=== PATIENT | female | born 1950 | race Caucasian/White ===

== ENCOUNTER 2016-06-17 14:17 | Observation (INO) | payer OTHER ==
--- NOTE | 2016-06-17 15:13 | RAD ---
HISTORY: Altered mental status COMPARISONS: None VIEWS:1: Single frontal portable view of the chest at 2:58 PM FINDINGS: LINES AND TUBES: None. CARDIOMEDIASTINAL SILHOUETTE: The cardiomediastinal silhouette is normal for portable technique. PLEURA: The costophrenic angles are sharp. No pleural abnormalities are noted. LUNG PARENCHYMA: The lungs are clear. ABDOMEN: The upper abdomen is clear. There is no subphrenic gas. BONES AND SOFT TISSUES: The patient is status post anterior cervical fusion IMPRESSION: NO ACTIVE CARDIOPULMONARY DISEASE.
--- NOTE | 2016-06-17 15:20 | RAD ---
HISTORY: Headache, ataxia, word finding difficulty COMPARISONS: None TECHNIQUE: Multiple contiguous axial CT scans were obtained of the head without intravenous contrast. FINDINGS: HEMORRHAGE/INFARCT: There is no hemorrhage or acute infarct. MASSES/SHIFT: There is no mass or shift. EXTRA-AXIAL SPACES: There are no extra-axial fluid collections. SULCI AND VENTRICLES: The sulci and ventricles are normal in size and position for the patient's stated age. CEREBRUM: There are no focal parenchymal abnormalities. BRAINSTEM: There are no focal parenchymal abnormalities. CEREBELLUM: There are no focal parenchymal abnormalities. VESSELS: The vessels are grossly normal. PARANASAL SINUSES: The paranasal sinuses are clear. ORBITS: The orbits are unremarkable. BONES AND SOFT TISSUE: No bone or soft tissue abnormalities are noted. OTHER: None IMPRESSION: NO ACUTE INTRACRANIAL PATHOLOGY.
[2016-06-17] MEDS: NS 0.9% 1000 ML* 1,000 ML IV SCH ×2 (15:25→18:30)
[2016-06-17 15:26] LABS: Hematocrit 35 % (35-47); Hemoglobin 11.7 g/dl (12.0-16.0); Mean Corpuscular HGB Conc 33 g/dl (31-36); Mean Corpuscular Hemoglobin 30 pg (27-31); Mean Corpuscular Volume 90 fL (80-97); Mean Platelet Volume 7 um3 (7.4-10.4); Red Blood Count 3.93 10^6/ul (4.0-5.4); Red Cell Distribution Width 13 % (10.5-15); White Blood Count 6.3 10^3/ul (3.5-10.8)
[2016-06-17 15:41] LABS: ALT 17 U/L (7-52); AST 20 U/L (13-39); Albumin 4.1 g/dL (3.2-5.2); Alkaline Phosphatase 79 U/L (34-104); Anion Gap 8 mmol/L (2-11); BUN/Creatinine Ratio 20.7 (8-20); Blood Urea Nitrogen 24 mg/dL (6-24); C Reactive Protein 11.84 mg/L (< 5.00); CO2 Carbon Dioxide 23 mmol/L (22-32); Calcium 9.7 mg/dL (8.6-10.3); Chloride 106 mmol/L (101-111); Creatine Kinase 102 U/L (10-223); EGFR African American 60.5 (>60); Glucose 92 mg/dL (70-100); Lipase 32 U/L (11.0-82.0); Magnesium 1.9 mg/dL (1.9-2.7); Sodium 137 mmol/L (133-145); Total Protein 8.1 g/dL (6.4-8.9)
[2016-06-17 16:10] LABS: Acetaminophen < 15 mcg/mL; Alcohol < 10 mg/dL (<10)
--- NOTE | 2016-06-17 16:15 | ED ---
cinthia Quintana Timothy, scribed for Arik West MD on 06/17/16 at 1443 . Altered Mental Status - HPI Summary HPI Summary: Elisa Basilio is a 65 yo female presenting to [facility] with "dizziness, like her head is swimming" and confusion, sent by her PCP. PCP is requesting CT brain and lyme disease labs. She states she was at work when she noticed her dizziness , and then became emotional and would be unable to focus and would lose her train of thought. She states she has felt off-balance since 1100 today. She states she has had similar Sx since the end of May that resolved. Her dizziness increases when she sits up or moves her head. She states she has had a mild, intermittent 3/10 ZAIDI since before concern for lyme disease was brought up. She is not in any current pain. She has allergies with runny nose. She denies weakness, numbness, visual changes, ear pain, sore throat, CP, SOB. Her daughter present in room states she has been having some difficulty finding words. Her MHx includes HTN, arthrtic changes, shingles 2013. - History Of Current Complaint Chief Complaint: EDAltMentalStatus Stated Complaint: AMS Time Seen by Provider: 06/17/16 14:34 Hx Obtained From: Patient Onset/Duration: Unknown Timing: Constant Severity Initially: Moderate Severity Currently: Moderate Character: Confusion Aggravating Factor(s): Other - sitting up in bed Alleviating Factor(s): Nothing Associated Signs And Symptoms: Positive: Dizziness - Allergies/Home Medications Allergies/Adverse Reactions: Allergies Allergy/AdvReac Type Severity Reaction Status Date / Time Nitrofurantoin Allergy Rash And Verified 06/17/16 14:54 [From Macrodantin] Itching PMH/Surg Hx/FS Hx/Imm Hx Endocrine/Hematology History: Denies: Hx Diabetes, Hx Thyroid Disease Cardiovascular History: Reports: Hx Hypertension - Controlled Respiratory History: Reports: Hx Seasonal Allergies Denies: Hx Asthma GI History: Denies: Hx Ulcer - Cancer History Hx Chemotherapy: No Hx Radiation Therapy: No - Surgical History Surgery Procedure, Year, and Place: cervical disc replaced. lower back issues. x1. tonsillectomy Infectious Disease History: Reports: Hx Shingles - 2013 Denies: Hx Hepatitis, Hx Human Immunodeficiency Virus (HIV), Traveled Outside the [place] in Last 30 Days - Family History Known Family History: Positive: Cardiac Disease, Hypertension, Diabetes, Other - breast CA - Social History Alcohol Use: Occasionally Hx Substance Use: No Substance Use Type: Reports: None Hx Tobacco Use: No Smoking Status (MU): Never Smoked Tobacco Review of Systems Constitutional: Negative Eyes: Negative Negative: Blurred Vision Positive: Nasal Discharge. Negative: Sore Throat, Ear Ache Cardiovascular: Negative Negative: Chest Pain Respiratory: Negative Negative: Shortness Of Breath Gastrointestinal: Negative Genitourinary: Negative Musculoskeletal: Negative Skin: Negative Neurological: Other - confusion, dizziness, off balance, unable to focus Positive: Headache. Negative: Weakness, Numbness Psychological: Normal All Other Systems Reviewed And Are Negative: Yes Physical Exam Triage Information Reviewed: Yes Vital Signs On Initial Exam: Initial Vitals Temp Pulse Resp BP Pulse Ox 98 F 82 17 133/90 96 06/17/16 14:23 06/17/16 14:23 06/17/16 14:23 06/17/16 14:23 06/17/16 14:23 Vital Signs Reviewed: Yes Appearance: Positive: Well-Appearing, No Pain Distress, Well-Nourished Skin: Positive: Warm, Skin Color Reflects Adequate Perfusion, Dry Head/Face: Positive: Normal Head/Face Inspection Eyes: Positive: EOMI, ABIDA, Other: - bilateral nystagmus ENT: Positive: Normal ENT inspection, Hearing grossly normal. Negative: Muffled /hoarse voice Neck: Positive: Supple, Nontender Respiratory/Lung Sounds: Positive: Clear to Auscultation, Breath Sounds Present Cardiovascular: Positive: RRR Musculoskeletal: Positive: Strength/ROM Intact Neurological: Positive: Sensory/Motor Intact - no focal neurological deficit, Alert, Oriented to Person Place, Time Psychiatric: Positive: Affect/Mood Appropriate Diagnostics - Vital Signs Vital Signs Temp Pulse Resp BP Pulse Ox 06/17/16 14:23 98 F 82 17 133/90 96 - Laboratory Lab Results: Lab Results 06/17/16 06/17/16 06/17/16 Range/Units 15:22 15:22 15:22 WBC 6.3 (3.5-10.8) 10^3/ul RBC 3.93 L (4.0-5.4) 10^6/ul Hgb 11.7 L (12.0-16.0) g/dl Hct 35 (35-47) % MCV 90 (80-97) fL MCH 30 (27-31) pg MCHC 33 (31-36) g/dl RDW 13 (10.5-15) % Plt Count 261 (150-450) 10^3/ul MPV 7 L (7.4-10.4) um3 Neut % (Auto) 53.6 (38-83) % Lymph % (Auto) 36.7 (25-47) % Upton % (Auto) 8.2 (1-9) % Eos % (Auto) 0.9 (0-6) % Baso % (Auto) 0.6 (0-2) % Absolute Neuts (auto) 3.4 (1.5-7.7) 10^3/ul Absolute Lymphs (auto) 2.3 (1.0-4.8) 10^3/ul Absolute Monos (auto) 0.5 (0-0.8) 10^3/ul Absolute Eos (auto) 0.1 (0-0.6) 10^3/ul Absolute Basos (auto) 0 (0-0.2) 10^3/ul Absolute Nucleated RBC 0 10^3/ul Nucleated RBC % 0 INR (Anticoag Therapy) 0.97 (0.89-1.11) APTT 29.8 (26.0-36.3) seconds Sodium 137 (133-145) mmol/L Potassium 4.0 (3.5-5.0) mmol/L Chloride 106 (101-111) mmol/L Carbon Dioxide 23 (22-32) mmol/L Anion Gap 8 (2-11) mmol/L BUN 24 (6-24) mg/dL Creatinine 1.16 H (0.51-0.95) mg/dL Est GFR ( Amer) 60.5 (>60) Est GFR (Non-Af Amer) 47.0 (>60) BUN/Creatinine Ratio 20.7 H (8-20) Glucose 92 (70-100) mg/dL Lactic Acid (0.5-2.0) mmol/L Calcium 9.7 (8.6-10.3) mg/dL Magnesium 1.9 (1.9-2.7) mg/dL Total Bilirubin 0.30 (0.2-1.0) mg/dL AST 20 (13-39) U/L ALT 17 (7-52) U/L Alkaline Phosphatase 79 (34-104) U/L Ammonia (16-53) mol/L Total Creatine Kinase 102 (10-223) U/L CK-MB (CK-2) 1.5 (0.6-6.3) ng/mL Troponin I 0.00 (<0.04) ng/mL C-Reactive Protein 11.84 H (< 5.00) mg/L Total Protein 8.1 (6.4-8.9) g/dL Albumin 4.1 (3.2-5.2) g/dL Globulin 4.0 (2-4) g/dL Albumin/Globulin Ratio 1.0 (1-3) Lipase 32 (11.0-82.0) U/L TSH Pending Acetaminophen < 15 mcg/mL Serum Alcohol < 10 (<10) mg/dL 06/17/16 06/17/16 Range/Units 15:22 15:22 WBC (3.5-10.8) 10^3/ul RBC (4.0-5.4) 10^6/ul Hgb (12.0-16.0) g/dl Hct (35-47) % MCV (80-97) fL MCH (27-31) pg MCHC (31-36) g/dl RDW (10.5-15) % Plt Count (150-450) 10^3/ul MPV (7.4-10.4) um3 Neut % (Auto) (38-83) % Lymph % (Auto) (25-47) % Upton % (Auto) (1-9) % Eos % (Auto) (0-6) % Baso % (Auto) (0-2) % Absolute Neuts (auto) (1.5-7.7) 10^3/ul Absolute Lymphs (auto) (1.0-4.8) 10^3/ul Absolute Monos (auto) (0-0.8) 10^3/ul Absolute Eos (auto) (0-0.6) 10^3/ul Absolute Basos (auto) (0-0.2) 10^3/ul Absolute Nucleated RBC 10^3/ul Nucleated RBC % INR (Anticoag Therapy) (0.89-1.11) APTT (26.0-36.3) seconds Sodium (133-145) mmol/L Potassium (3.5-5.0) mmol/L Chloride (101-111) mmol/L Carbon Dioxide (22-32) mmol/L Anion Gap (2-11) mmol/L BUN (6-24) mg/dL Creatinine (0.51-0.95) mg/dL Est GFR ( Amer) (>60) Est GFR (Non-Af Amer) (>60) BUN/Creatinine Ratio (8-20) Glucose (70-100) mg/dL Lactic Acid 0.8 (0.5-2.0) mmol/L Calcium (8.6-10.3) mg/dL Magnesium (1.9-2.7) mg/dL Total Bilirubin (0.2-1.0) mg/dL AST (13-39) U/L ALT (7-52) U/L Alkaline Phosphatase (34-104) U/L Ammonia 33 (16-53) mol/L Total Creatine Kinase (10-223) U/L CK-MB (CK-2) (0.6-6.3) ng/mL Troponin I (<0.04) ng/mL C-Reactive Protein (< 5.00) mg/L Total Protein (6.4-8.9) g/dL Albumin (3.2-5.2) g/dL Globulin (2-4) g/dL Albumin/Globulin Ratio (1-3) Lipase (11.0-82.0) U/L TSH Acetaminophen mcg/mL Serum Alcohol (<10) mg/dL Result Diagrams: 06/17/16 15:22 06/17/16 15:22 Lab Statement: Any lab studies that have been ordered have been reviewed, and results considered in the medical decision making process. - Radiology CXR Xray Interpretation: No Acute Changes - IMPRESSION: NO ACTIVE CARDIOPULMONARY DISEASE. Radiology Interpretation Completed By: Radiologist - CT Brain CT Interpretation: No Acute Changes - IMPRESSION: NO ACUTE INTRACRANIAL PATHOLOGY. CT Interpretation Completed By: Radiologist - EKG 1440 Cardiac Rate: NL - [address] Segment: Normal Ectopy: None EKG Interpretation: NSR @ 76 BPM, normal ST, no ectopy National Institutes Of Health - NIH Scale Level of Consciousness: Alert/Keenly Responsive Ask Patient the Month and His/Her Age: Both Correct Ask Pt to Open/Close Eyes and Consulting Engineer/Release Non-Paretic Hand: Both Correctly Best Gaze (Only Horizontal Eye Movement): Normal Visual Field Testing: No Visual Loss Facial Paresis-Pt to Smile & Close Eyes or Grimace Symmetry: Normal/Symmetrical Motor Function - Right Arm: No Drift-Holds 10 Seconds Motor Function - Left Arm: No Drift-Holds 10 Seconds Motor Function - Right Leg: No Drift-Holds 10 Seconds Motor Function - Left Leg: No Drift-Holds 10 Seconds Limb Ataxia-Must be out of Proportion to Weakness Present: Absent Sensory (Use Pinprick to Test Arms/Legs/Trunk/Face): Normal Best Language (Describe Picture, Name Items): No Aphasia Dysarthria (Read Several Words): Normal Extinction and Inattention: No Abnormality Total Score: 0 Re-Evaluation - Re-Evaluation First Eval Re-Evaluation Time: 15:44 Change: Unchanged Comment: Discussed lab and imaging results with Pt and family. She is agreeable to be admitted. Altered Mental Statu Course/Dx - Course Course Of Treatment: NO CRITICAL CARE TIME Assessment/Plan: Elisa Hough is a 65 yo female presenting to [facility] with confusion and dizziness, sent by her PCP. Her medication list has been reviewed this visit. In the ED she received IV fluids. Her CXR suggests no active cardiopulmonary disease. Her Brain CT suggests no acute intracranial pathology. After clinical examination and review of her labs and imaging studies, as well as discussion with Leonid Mariscal NP and Dr. Rausch, she will be admitted to [facility] for further observation and evaluation. - Diagnoses Discharge Diagnoses: TIA (transient ischemic attack) - Provider Notifications Discussed Care Of Patient With: 1535 - Leonid Mariscal (HOSPITAL INSURANCE CLERK, hospitalist) - discussed Pt condition. 1601 - Dr. Rausch (hospitalist) - discussed Pt condition , accepts Pt for admission to [facility]. Instructed by Provider To: Admit As Inpatient Discharge - Discharge Plan Condition: Stable Disposition: ADMITTED TO [facility] Discharge Disposition Comment: evaluation and treatment Referrals: Kellie Crump MD [Primary Care Provider] - The documentation as recorded by the cinthia valdez Timothy accurately reflects the service I personally performed and the decisions made by me, Arik West MD.
[2016-06-17] MEDS ORDERED: Acetaminophen TAB* 325 MG PO PRN (17:42)
[2016-06-17] MEDS ORDERED: Temazepam CAP* 15 MG PO PRN (17:42)
[2016-06-17] MEDS ORDERED: NS 0.9% 1000 ML* 1,000 ML IV SCH (17:45)
[2016-06-17] MEDS ORDERED: Venlafaxine EXT RELEASE CAP* 75 MG PO SCH (18:00)
[2016-06-17 18:16] LABS: Urine Bacteria Absent (Absent); Urine Bilirubin Negative (Negative); Urine Glucose Negative (Negative); Urine Nitrite Negative (Negative)
[2016-06-17] MEDS: Cholecalciferol TAB* 1000 UNITS PO SCH (18:25)
[2016-06-17] MEDS: Aspirin Low Dose CHEW TAB* 81 MG PO SCH (18:25)
[2016-06-17] MEDS: Cyanocobalamin TAB* 500 MCG PO SCH (18:25)
[2016-06-17 18:47] LABS: Erythrocyte Sed Rate 87 mm/Hr (0-30)
--- NOTE | 2016-06-17 19:33 | HP ---
HISTORY AND PHYSICAL: DATE OF ADMISSION: 06/17/16 PRIMARY CARE PROVIDER: Dr. Kellie Crump. CHIEF COMPLAINT: Transient problems with speech, unsteady gait. HISTORY OF PRESENT ILLNESS: Elisa Hough is a 65-year-old female, who has had problems with myalgias and ESR level of 104 documented on 06/08/16 as well as rash noted on the right elbow. She was diagnosed with most likely Lyme by her primary care provider and was prescribed doxycycline 8 days ago. The patient stated that her problems overall occurred approximately 2 weeks ago. She started having problems with upper respiratory infection with congestion and sore throat. She noted ulcer on her tongue and she went to [facility] for evaluation. She was noted with most likely viral ulceration due to herpangina. She did rather well, although she continued to have myalgias and upper respiratory infection symptoms and had 2 episodes of near syncope. Both of these episodes occurred when was suddenly getting up from a sitting position to standing. One of those episodes, she described, she got up to open the door for her dog that was outside to let the dog in and all of a sudden, she felt dizzy and flushed. That resolved after she sat down. It happened twice. She went to see her primary care provider with the above-mentioned complaints. Her primary care provider discovered a circular rash-like lesion on her right elbow. The patient Western blot tested for Lyme, was positive for 1 band out of 5. It was noted that this is not a confirmation of Lyme disease at this point, but it is possible that the patient still had early Lyme and was recommended for the Lyme test to be repeated at a later time. Nevertheless, the patient was treated with doxycycline and she had been doing well. Her upper respiratory infection symptoms and myalgias basically resolved. She continued to take doxycycline without any gastrointestinal issues due to that. 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 She also felt like her head was "floating in water." She also noted that she had problems with difficulty word finding. Her speech was clear and she had no focal weakness that she noted. It lasted approximately an hour and resolved when she was in the emergency department. Here, she is at this point at her baseline, although when I stood her up she had very unsteady gait. She is going to be placed on overnight observation with a diagnosis of possibility of TIA versus labyrinthitis. PAST MEDICAL HISTORY: 1. Newly diagnosed vitamin D and vitamin B12 deficiency. 2. Hypercholesterolemia. 3. Depression. 4. Hypertension. 5. Arthritis of knee. 6. Degenerative disk disease. 7. An episode of dizziness in 2003. 8. An episode of chest pain in 2006 with negative cardiac workup and false positive stress test. 9. History of herpes zoster in 2014. The patient has intermittent postherpetic neuralgia in right T10 dermatome. 10. History of , 1983. 11. Appendectomy in the 1949s. 12. History of tonsillectomy and adenoidectomy. MEDICATIONS: Include: 1. Cetirizine 10 mg daily. 2. Clobetasol 0.05% topical b.i.d. 3. Vitamin B12 2000 mcg daily. 4. Daypro 600 mg 1 tablet daily for knee pain. 5. Doxycycline 100 mg b.i.d., total of 21 days, started on 06/08/16. 6. Effexor ER 150 mg in the morning and 75 mg in the afternoon. 7. Vitamin D3 5000 units daily. 8. Yuvafem 10 mcg vaginal tablets, insert vaginally for 14 days at bedtime. The patient started this treatment on 06/08/16. ALLERGIES: Include MACRODANTIN. SOCIAL HISTORY: The patient denies any tobacco or drug use. She drinks alcohol rarely. 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 She is recently and her surrogate would be her daughter, Sasha Hinton. REVIEW OF SYSTEMS: Please see history of present illness. In addition to the above mentioned, the patient also stated that she had problems in the past with intermittent epigastric pain that since then resolved. She also has a history of intermittent bloating, but has improved in the past several days. All the remaining 14 systems were reviewed and were negative. PHYSICAL EXAMINATION GENERAL: The patient is a very pleasant 65-year-old female who is in no acute distress. Alert, awake, and oriented x3. VITAL SIGNS: Blood pressure 133/90, heart rate of 82 and regular, respiratory rate 17, oxygen saturation 96% on room air, temperature 98.0. HEENT: Head: Atraumatic, normocephalic. Eyes: Pupils equal, round, reactive to light and accommodation. Oropharynx clear. Mucosa moist. NECK: Supple. No JVD, no bruit bilaterally. RESPIRATORY: Clear to auscultation bilaterally. CARDIOVASCULAR: Regular rate and rhythm. No murmur. ABDOMEN: Soft, nontender. Bowel sounds present in all 4 quadrants. EXTREMITIES: There is no edema. Pulses are +2 bilaterally. No clubbing or cyanosis. NEUROLOGIC: The patient was noted to have nystagmus on the left lateral gaze. The patient also has a very unsteady gait and is unable to ambulate without assistance. Her [id number]-onve is non-dysmetric bilaterally. She has no pronator drift. Her motor strength is 5/5 bilaterally. Her [id number] is non -dysmetric bilaterally. Babinski sign negative bilaterally. Her cranial nerves II through XII grossly intact apart from the noted nystagmus. Please also note that in addition on the day of admission on evaluation of bilateral tympanic membranes, there was no evidence of injection, although there appeared to be clear fluid in the left inner ear. PSYCHIATRIC: Oriented x3. Very pleasant, cooperative with evaluation with no evidence of anxiety or depression. DIAGNOSTIC STUDIES/LAB DATA: Shows sodium of 137, potassium 4.0, chloride 106 , carbon dioxide 23, BUN 24, creatinine 1.16. Liver function tests unremarkable. C- reactive protein of 11.8. TSH was 3.2. White blood cell count of 6.3, hemoglobin of 11.7, hematocrit of 35, platelets of 261. Brain CT, impression: "No acute intracranial pathology." Portable chest x-ray, impression: "No active cardiopulmonary disease." EKG showed normal sinus rhythm, rate of 76 beats per minute with normal axis and no ST changes. Please note that from review of the patient's medical records, the patient had a creatinine obtained on 06/05/16 and it was 1.11. Her BUN at that point was 23. Her white blood cell count was 6.2, hemoglobin of 12.6. Her liver function tests were unremarkable on that day. Her ESR was 104. The patient's vitamin D total level was 20.5 which was low. The patient's ESR as mentioned above was 104. The patient's Lyme disease serology showed only one band of IgM and noted that significant serologic response to Borrelia burgdorferi infection is not detected , but cannot rule out early infection. Vitamin B12 was noted to be 189. ASSESSMENT AND PLAN: A 65-year-old female with recently diagnosed possible Lyme. Please also note that on evaluation of the patient's skin, the patient's rash on the right elbow resolved. I will continue her doxycycline for the time being, although her Lyme serology was not conclusive of Lyme. She could have had an acute infection and a repeat serology is recommended . In regards to her symptoms of problems word finding, somewhat dizziness and blurry vision and now continuation of ataxia and nystagmus on left lateral gaze. At this point, the differential includes demyelinating disease versus labyrinthitis versus transient ischemic attack. I discussed the case with Dr. Moore. We will place the patient on telemetry monitored bed and will obtain MRI with and without contrast. We will continue neuro checks every 2 hours and provide with the patient with aspirin on a daily basis. In regards to the patient's history of vitamin B12 and vitamin D deficiency, we will continue the patient's replacement. For DVT prophylaxis, the patient is going to be placed on heparin subcutaneous. The patient's code status is full. TIME SPENT: Approximately 75 minutes was spent on admission of this patient, more than half that time was spent [id number] with the patient in reviewing the patient's recent medical history and history and physical taking. CC: Dr. Kellie Crump; Dr. Moore* [id number]/[facility] #: [id number] [facility]AN HOSPITALLaureano
[2016-06-17] MEDS ORDERED: Gadoteridol* (CONTRAST) 279.3 MG/ML 10 ML IV ONE (20:46)
--- NOTE | 2016-06-17 21:29 | RAD ---
Indication: Dizziness and off balance. Recent diagnosis of Lyme disease. Assess for ischemia and demyelinating disease. Comparison: June 17, 2016 CT Technique: C-sama 1.5 Brittni [id number] with GEM suite. MRI brain without and with contrast. 20 mL ProHance administered IV. Report: Diffusion series is negative for acute or subacute ischemia. Small focus of signal loss at the medial para midline RIGHT frontal lobe at level of the centrum semiovale bowel without corresponding morphologic lesion likely represents sequela of a previous intra-axial hemorrhage most likely related to a cavernous angioma. Unremarkable cerebral sulci, ventricles, and basal cisterns. Symmetric mild increased T2 signal at the bilateral basal ganglia specifically the globus pallidus without associated enhancement or mass effect. Associated minimal calcification at the LEFT basal ganglia on CT. No additional lesions evident at the cerebrum or posterior fossa. No intra or extra-axial fluid collections. Unremarkable orbital contents. No abnormal foci of enhancement evident. Preserved major intracranial flow-voids. No suspicious lesion of the calvarium or skull base. Grossly clear paranasal sinuses and mastoid air spaces. IMPRESSION: 1. Negative for acute or subacute ischemia or evidence for demyelinating disease. 2. Stigmata of punctate hemosiderin deposition at the RIGHT frontal lobe most likely related to a tiny cavernous angioma. 3. Noted mild bilateral symmetric T2 hyperintense without enhancement or mass effect at the basal ganglia specifically involving the globus pallidus while nonspecific may reflect previous toxin exposure such as carbon monoxide or potentially a neurodegenerative or metabolic disease.
[2016-06-17] MEDS: Clobetasol 0.05% OINT* 30 GM TUBE TOPICAL SCH (21:50)
[2016-06-17] MEDS: DOXYcycline CAP(*) 100 MG PO SCH (21:50)
[2016-06-17] MEDS: Heparin VIAL(*) 5000 UNITS/ML VIAL (FIVE THOUSAND) SUBCUT SCH (21:54)
[2016-06-17] MEDS ORDERED: methylPREDNISolone 125 MG* 2 ML VIAL IV ONE (22:30)
--- NOTE | 2016-06-17 23:32 | CONS ---
CONSULTATION REPORT: DATE OF CONSULT: 06/17/2016. PATIENT OF: Dr. Rausch. HISTORY: This is a 65-year-old right-handed woman I am asked to evaluate for a variety of symptoms including unsteady gait. She has in the past 2 weeks of variety of symptoms. She had a rash, which was not a bull's-eye rash on the right elbow. She has had some joint swelling and pain in joints of her hands. She has had myalgias and she has had an elevated sed rate of 104 on the . She also had some throat and URI with some congestion and ulcer on her tongue and was thought to have herpangina. She also had 2 episodes of near syncope while she was standing and she got lightheaded and flushed. She has had no clear balance problems up until recently. She did have some slight blurring of vision. She has had mild left frontotemporal headache for the past week or two. She had worse symptoms and slightly different symptoms today. She has noted throughout the day that her head has been "floating in water" and she has had difficulty describing and it is not true vertigo. She has also had some difficulty with word finding, but this was mild but noticeable both to her and her daughter. She also had an episode of global blurriness of vision. There has been no focal weakness or numbness, but she has also had throughout the day difficulty with balance and unsteadiness of gait. She has had past history of an episode of dizziness in 2003. She has had no other similar symptoms in the past. She has had mild vitamin B12 deficiency of 184 diagnosed recently as well as vitamin D deficiency. PAST MEDICAL HISTORY: She has hypertension, knee arthritis, degenerative disk disease, depression and hypercholesterolemia. She has had chest pain in 2006 with negative cardiac workup. She had a history herpes zoster in 2014. PAST SURGICAL HISTORY: She has had an appendectomy in the distant past as well as a history of , tonsillectomy, adenoidectomy. MEDICATIONS: Include: 1. Cetirizine 10 mg daily. 2. Clobetasol 0.05 topically b.i.d. 3. Vitamin B12 2000 mcg daily. 4. Daypro 600 mg daily for knee pain. 5. Doxycycline 100 mg b.i.d. for 21 days started on June 08. She had one IgM band on her Western Blot. 6. She had Effexor 150 in the morning and 75 in the evening. 7. Vitamin D 5000 units daily. ALLERGIES: She is allergic to MACRODANTIN. SOCIAL HISTORY: She does not smoke or drink or use drugs. 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 REVIEW OF SYSTEMS: Negative in all 14 spheres other than the HPI. PHYSICAL EXAM: She has had no recent fever. Temperature 98, pulse 86, respirations 16, blood pressure 131/76. She is alert and oriented with normal speech and comprehension. Naming was intact. The speech sounded fluent. Cranial nerves II through XII were intact. There was no nystagmus. Discs were sharp. Motor exam revealed normal tone, strength, [id number]-[id number] and fine motor skills. Negative pronator drift. She had an unsteady gait although it was not wide based. Reflexes were 2+ with present ankle jerks and downgoing toes. Neck was supple. Chest was clear. Cardiovascular: Regular rate and rhythm. Abdomen : Soft. Positive bowel sounds. She was mildly tender over her left temporal artery, but not her right. DIAGNOSTIC STUDIES/LAB DATA: Her MRI scan has not been read, but is done with and without contrast. I did not see any major abnormalities. Her white count was 6.3, hematocrit 35, platelets 263. Sed rate was 87 today. Normal INR and PTT. She had a normal CMP other than the creatinine of 1.16. C-reactive protein was 11.8. Normal CPK, ammonia. Normal thyroid. Her UA was positive for 1+ leuk esterase with present hyaline cast. Negative toxicology. CECI rheumatoid factor pending. IMPRESSION: I am concerned that Elisa has possible diffuse inflammatory disease. She has had some joint pain and she has a swollen middle knuckle and she has had some swollen joints in her hands. This has been in the past but perhaps more in the past couple of weeks time. Her rash has faded now but she had a rash and an ulcer. She has some hyaline cast. She has some temporal tenderness and she has diffuse neurological symptoms that do not sound likely can be defined by any one spot such and this is not the story of a stroke but this could be multifocal disease on an autoimmune basis. Her temporal artery is mildly tender and it is possible this represents some form of temporal arteritis, although I think her symptoms do not definitive enough to. Should this is the case, for tonight I am going to treat her with 100 mg of IV Solu- Medrol and have Rheumatology take a look at her in the morning. I discussed with her we may do further tests such as depending on what her autoimmune panel comes back as such as imaging of blood vessels of her head and neck, possibly doing a spinal tap, looking for inflammatory process and possibly a temporal artery bypass. Her serology was not convincing for Lyme disease but that is still a possibility, it would be odd for her to have [employer]TI[employer] Lyme. Her Lyme titers if they were significant would suggest an emerging Lyme disease within the past couple weeks' time would be typically too soon for her neurological symptoms be secondary to Lyme disease. I was speaking to the hospitalist flight operations manager to put this in motion. Thank you for sharing her case. CC: Dr. Crump* [id number]/CPS #: [id number] MTDD
[2016-06-18] MEDS: Heparin VIAL(*) 5000 UNITS/ML VIAL (FIVE THOUSAND) SUBCUT SCH (06:12)
[2016-06-18] MEDS: Cholecalciferol TAB* 1000 UNITS PO SCH (09:13)
[2016-06-18] MEDS: Venlafaxine EXT RELEASE CAP* 75 MG PO SCH (09:14)
[2016-06-18] MEDS: Cyanocobalamin TAB* 500 MCG PO SCH (09:15)
[2016-06-18] MEDS: Aspirin Low Dose CHEW TAB* 81 MG PO SCH (09:15)
[2016-06-18] MEDS: Clobetasol 0.05% OINT* 30 GM TUBE TOPICAL SCH ×2 (09:16→20:28)
[2016-06-18] MEDS: DOXYcycline CAP(*) 100 MG PO SCH ×2 (09:16→20:24)
--- NOTE | 2016-06-18 11:53 | RAD ---
HISTORY: Rule out vasculitis COMPARISONS: None TECHNIQUE: 3-D axial [id number] MR angiography was performed of the head to include the [place]. Multiple 3-D maximum intensity projection reconstructions are also submitted for review. FINDINGS: The study is limited by patient motion artifact. RIGHT VERTEBRAL ARTERY: The distal right vertebral artery is unremarkable, without stenosis. LEFT VERTEBRAL ARTERY: The distal left vertebral artery is unremarkable, without stenosis. DOMINANCE: The vertebral arteries are codominant. DISTAL RIGHT CERVICAL INTERNAL CAROTID ARTERY: The distal right cervical internal carotid artery is unremarkable. DISTAL LEFT CERVICAL INTERNAL CAROTID ARTERY: The distal left cervical internal carotid artery is unremarkable. INTRACRANIAL CIRCULATION: There is no aneurysm, vascular malformation, occlusion, or stenosis of the visualized intracranial circulation. The anterior communicating artery complex is clear. There is a origin of the left posterior cerebral artery. OTHER FINDINGS: None IMPRESSION: NO ANEURYSM, VASCULAR MALFORMATION, OCCLUSION, OR STENOSIS OF THE VISUALIZED INTRACRANIAL CIRCULATION.
--- NOTE | 2016-06-18 11:56 | RAD ---
HISTORY: Rule out vasculitis COMPARISONS: None TECHNIQUE: The following sequences were obtained of the neck after localizing images: Stacked axial 2-D [id number] MR angiography of the neck; 3-D axial [id number] MR angiography of the carotid bifurcations. Multiple 3-D maximum intensity projection reconstructions are submitted for review. FINDINGS: AORTA: The aortic arch is not well visualized secondary to technique and motion artifact. There is no obvious ostial or proximal stenosis of the cephalic great vessels. 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 There is in plane flow saturation artifact of the horizontal portion of the right vertebral artery. LEFT VERTEBRAL ARTERY: The left vertebral artery is patent, without stenosis. There is in plane flow saturation artifact of the horizontal portion of the left vertebral artery. DOMINANCE: The vertebral arteries are codominant. RIGHT COMMON CAROTID ARTERY: The right common carotid artery is patent. RIGHT INTERNAL CAROTID ARTERY: There is no right internal carotid artery stenosis by NASCET criteria. LEFT COMMON CAROTID ARTERY: The left common carotid artery is patent. LEFT INTERNAL CAROTID ARTERY: There is no left internal carotid artery stenosis by NASCET criteria. ADDITIONAL FINDINGS: The visualized intracranial circulation is unremarkable. IMPRESSION: NO INTERNAL CAROTID ARTERY BY NASCET CRITERIA CPT II Codes: 3100F
[2016-06-18] MEDS ORDERED: Bupivacaine 0.5% W/EPI SDV* 30 ML VIAL ONE (14:38)
[2016-06-18] MEDS ORDERED: Lidocaine 1% INJ* 10 MG/ML 30 ML SDV ONE (14:38)
[2016-06-18] MEDS ORDERED: Ibuprofen TAB* 800 MG PO PRN (16:27)
[2016-06-18] MEDS: predniSONE TAB* 20 MG PO SCH (16:34)
--- NOTE | 2016-06-18 17:04 | PN ---
Subjective Date of Service: 06/18/16 Interval History: pt received solu Medrol last night and her gait improved greatly. She is able to ambulate independently. Feels that sometimes she still has problems with finding words, when she is tired. Objective Active Medications: Acetaminophen (Tylenol Tab*) 650 mg PO Q4H PRN PRN Reason: FEVER/PAIN Last Admin: 06/18/16 12:24 Dose: 650 mg Aspirin (Aspirin Low Dose Tab*) 81 mg PO DAILY [facility] Last Admin: 06/18/16 09:15 Dose: 81 mg Cholecalciferol (Vitamin D Tab*) 4,000 units PO DAILY [facility] Last Admin: 06/18/16 09:13 Dose: 4,000 units Clobetasol Propionate (Clobetasol 0.05% Oint*) 1 applic TOPICAL BID [facility] Last Admin: 06/18/16 09:16 Dose: 1 applic Cyanocobalamin (Vitamin B12 Tab*) 1,000 mcg PO DAILY [facility] Last Admin: 06/18/16 09:15 Dose: 1,000 mcg Doxycycline Hyclate (Vibramycin Cap(*)) 100 mg PO BID [facility] Last Admin: 06/18/16 09:16 Dose: 100 mg Ibuprofen (Motrin Tab*) 800 mg PO Q8H PRN PRN Reason: PAIN Last Admin: 06/18/16 16:35 Dose: 800 mg Prednisone (Deltasone Tab*) 60 mg PO DAILY [facility] Last Admin: 06/18/16 16:34 Dose: 60 mg Temazepam (Restoril Cap*) 15 mg PO BEDTIME PRN PRN Reason: INSOMNIA Venlafaxine HCl (Effexor Xr Cap*) 225 mg PO QAM [facility] Last Admin: 06/18/16 09:14 Dose: 225 mg Vital Signs 06/17/16 06/17/16 06/17/16 17:13 17:14 17:56 Temperature 97.9 F 97.9 F Pulse Rate 87 87 Respiratory 18 18 17 Rate Blood Pressure 144/85 144/85 (mmHg) O2 Sat by Pulse 100 100 Oximetry 06/17/16 06/17/16 06/18/16 19:51 20:00 00:22 Temperature 98.0 F 98.3 F Pulse Rate 86 73 Respiratory 16 16 20 Rate Blood Pressure 131/76 120/63 (mmHg) O2 Sat by Pulse 98 96 Oximetry 06/18/16 06/18/16 06/18/16 04:25 07:18 11:59 Temperature 98.3 F 97.7 F 98.2 F Pulse Rate 78 80 80 Respiratory 20 18 17 Rate Blood Pressure 119/83 130/72 116/86 (mmHg) O2 Sat by Pulse 95 97 96 Oximetry Oxygen Devices in Use Now: None Appearance: 65 yo F in nAD, aAOx3 Eyes: No Scleral Icterus, PERRLA Ears/Nose/Mouth/Throat: NL Teeth, Lips, Gums, Mucous Membranes Moist Neck: NL Appearance and Movements; NL JVP, Trachea Midline Respiratory: Symmetrical Chest Expansion and Respiratory Effort, Clear to Auscultation Cardiovascular: NL Sounds; No Murmurs; No JVD, RRR Abdominal: NL Sounds; No Tenderness; No Distention, No Hepatosplenomegaly Lymphatic: No Cervical Adenopathy Extremities: No Clubbing, Cyanosis, - - R 1 st , 2 nd MTP joint edema Skin: No Rash or Ulcers, No Nodules or Sclerosis Neurological: Alert and Oriented x 3, - - mild nystagmus on left laterl gaze.mildly unsteady gait- balt to mamta indepedently, speech clear, motor 5/5 b/ l , finger to nose intact. Result Diagrams: 06/17/16 15:22 06/17/16 15:22 Additional Lab and Data: Lab Results 06/17/16 06/17/16 06/17/16 Range/Units 15:22 15:22 15:22 WBC 6.3 (3.5-10.8) 10^3/ul RBC 3.93 L (4.0-5.4) 10^6/ul Hgb 11.7 L (12.0-16.0) g/dl Hct 35 (35-47) % MCV 90 (80-97) fL MCH 30 (27-31) pg MCHC 33 (31-36) g/dl RDW 13 (10.5-15) % Plt Count 261 (150-450) 10^3/ul MPV 7 L (7.4-10.4) um3 Neut % (Auto) 53.6 (38-83) % Lymph % (Auto) 36.7 (25-47) % [place] % (Auto) 8.2 (1-9) % Eos % (Auto) 0.9 (0-6) % Baso % (Auto) 0.6 (0-2) % Absolute Neuts (auto) 3.4 (1.5-7.7) 10^3/ul Absolute Lymphs (auto) 2.3 (1.0-4.8) 10^3/ul Absolute Monos (auto) 0.5 (0-0.8) 10^3/ul Absolute Eos (auto) 0.1 (0-0.6) 10^3/ul Absolute Basos (auto) 0 (0-0.2) 10^3/ul Absolute Nucleated RBC 0 10^3/ul Nucleated RBC % 0 INR (Anticoag Therapy) 0.97 (0.89-1.11) APTT 29.8 (26.0-36.3) seconds Sodium 137 (133-145) mmol/L Potassium 4.0 (3.5-5.0) mmol/L Chloride 106 (101-111) mmol/L Carbon Dioxide 23 (22-32) mmol/L Anion Gap 8 (2-11) mmol/L BUN 24 (6-24) mg/dL Creatinine 1.16 H (0.51-0.95) mg/dL Est GFR ( Amer) 60.5 (>60) Est GFR (Non-Af Amer) 47.0 (>60) BUN/Creatinine Ratio 20.7 H (8-20) Glucose 92 (70-100) mg/dL Lactic Acid (0.5-2.0) mmol/L Calcium 9.7 (8.6-10.3) mg/dL Magnesium 1.9 (1.9-2.7) mg/dL Total Bilirubin 0.30 (0.2-1.0) mg/dL AST 20 (13-39) U/L ALT 17 (7-52) U/L Alkaline Phosphatase 79 (34-104) U/L Ammonia (16-53) mol/L Total Creatine Kinase 102 (10-223) U/L CK-MB (CK-2) 1.5 (0.6-6.3) ng/mL Troponin I 0.00 (<0.04) ng/mL C-Reactive Protein 11.84 H (< 5.00) mg/L Total Protein 8.1 (6.4-8.9) g/dL Albumin 4.1 (3.2-5.2) g/dL Globulin 4.0 (2-4) g/dL Albumin/Globulin Ratio 1.0 (1-3) Lipase 32 (11.0-82.0) U/L TSH Pending Acetaminophen < 15 mcg/mL Serum Alcohol < 10 (<10) mg/dL 06/17/16 06/17/16 Range/Units 15:22 15:22 WBC (3.5-10.8) 10^3/ul RBC (4.0-5.4) 10^6/ul Hgb (12.0-16.0) g/dl Hct (35-47) % MCV (80-97) fL MCH (27-31) pg MCHC (31-36) g/dl RDW (10.5-15) % Plt Count (150-450) 10^3/ul MPV (7.4-10.4) um3 Neut % (Auto) (38-83) % Lymph % (Auto) (25-47) % [place] % (Auto) (1-9) % Eos % (Auto) (0-6) % Baso % (Auto) (0-2) % Absolute Neuts (auto) (1.5-7.7) 10^3/ul Absolute Lymphs (auto) (1.0-4.8) 10^3/ul Absolute Monos (auto) (0-0.8) 10^3/ul Absolute Eos (auto) (0-0.6) 10^3/ul Absolute Basos (auto) (0-0.2) 10^3/ul Absolute Nucleated RBC 10^3/ul Nucleated RBC % INR (Anticoag Therapy) (0.89-1.11) APTT (26.0-36.3) seconds Sodium (133-145) mmol/L Potassium (3.5-5.0) mmol/L Chloride (101-111) mmol/L Carbon Dioxide (22-32) mmol/L Anion Gap (2-11) mmol/L BUN (6-24) mg/dL Creatinine (0.51-0.95) mg/dL Est GFR ( Amer) (>60) Est GFR (Non-Af Amer) (>60) BUN/Creatinine Ratio (8-20) Glucose (70-100) mg/dL Lactic Acid 0.8 (0.5-2.0) mmol/L Calcium (8.6-10.3) mg/dL Magnesium (1.9-2.7) mg/dL Total Bilirubin (0.2-1.0) mg/dL AST (13-39) U/L ALT (7-52) U/L Alkaline Phosphatase (34-104) U/L Ammonia 33 (16-53) mol/L Total Creatine Kinase (10-223) U/L CK-MB (CK-2) (0.6-6.3) ng/mL Troponin I (<0.04) ng/mL C-Reactive Protein (< 5.00) mg/L Total Protein (6.4-8.9) g/dL Albumin (3.2-5.2) g/dL Globulin (2-4) g/dL Albumin/Globulin Ratio (1-3) Lipase (11.0-82.0) U/L TSH Acetaminophen mcg/mL Serum Alcohol (<10) mg/dL Assess/Plan/Problems-Billing Assessment: 65 yo F with h/o recent possible Lyme ( on Doxy), Vid D and B12 deff. presents with unsteady gait and difficulty word finding. - Patient Problems (1) Unsteady gait Comment: in conjunction with MTP joint edema, elevated ESR Lyme could cause some of the symptoms, but CRP not markedly elevated and symptoms improved with steroids. Appreciate 's consult. Dr. Timmons consulted and recommended temporal artery bx (done today) MRA head and MRA neck unremarkable MRI brain shows possibility of toxin exposure-pt is concerned that she may have been exposed to lead-levels larisa be ordered. Will cont steroids for the time being. Cont OBV on telem. (2) Vitamin D deficiency Comment: cont supplementation (3) Vitamin B12 deficiency Comment: cont supplementation (4) Depression Comment: cont Effexor (5) DVT prophylaxis Comment: ambulation encouraged, heparin sc held in case pt needed LP.
--- NOTE | 2016-06-18 18:14 | CONSULT ---
Consult Consult: Ms. Elisa Hough is a 65 year old woman who presented with ataxia, transient visual symptoms, recent rash, now with MCP joint swelling and elevated inflammatory markers. Temporal artery biopsy is pending. She is clinically improved after receiving 100mg IV Solumedrol Serologies for connective tissue disorder or toxins (given brain imaging findings) are pending. Consider giant cell arteritis, or a possible reactive process. Follow up temporal artery biopsy results and serologies
--- NOTE | 2016-06-18 23:10 | CONS ---
CONSULTATION REPORT: DATE OF CONSULT: 06/18/16 CONSULTING PHYSICIAN: Malorie Rausch MD REASON FOR CONSULTATION: Evaluate for an autoimmune process. HISTORY OF PRESENT ILLNESS: Ms. Hough is a pleasant 65-year-old woman who I met this evening accompanied by her daughter. She had presented to the emergency room with ataxia and trouble with word finding. Workup revealed an abnormal brain MRI, but her symptoms were notable for slight headache along the temporal region with some transient visual symptoms given her age and markedly elevated inflammatory markers, it is felt that giant cell arteritis should be ruled out and currently, she has a temporal artery biopsy pending, which I agree with doing on consultation with her other providers this morning. In terms of her more extensive history, she recently noticed a rash on the right elbow. She is felt to possibly have early Lyme disease and was prescribed doxycycline 8 days prior to admission. She has been working with Dr. Crump, but her symptoms have progressed as noted above leading to her present hospitalization. In terms of her other symptoms, she also had noted an upper respiratory infection initially with congestion and sore throat as well as a small ulcer on her tongue and she had initially gone to the [facility] for evaluation. Initially, she was treated for viral infection and her upper respiratory symptoms involved, but she had 2 episodes of near syncope with feeling of her vision slightly decreasing at the time. She also had trouble getting up from sitting to a standing position. On one of those episodes, she recalled that she had vertigo and she felt dizzy, weak, and flushed. That resolved when she sat down, but it did happen at least twice. It was noted when she saw Dr. Crump that she had a lesion on her right elbow along the inner aspect that was erythematous, but with no center clearing. Her Lyme testing was notable for only 1 band out of 5. Although not confirmatory, it was felt that she might have a possible early Lyme infection or reactive arthritis and she has prescribed the doxycycline. Her upper respiratory symptoms and muscle aching basically resolved. She continued to take the doxycycline without any significant GI issues. However, on the day of admission , she noted that she had an episode of her vision becoming blurry. She also felt like her head was floating in water. She had troubles with word finding, although she had no focal weakness, it lasted about an hour and gradually resolved. She continued to have an unsteady gait during her hospitalization given her other risk factors as well as markedly elevated inflammatory markers. She was given 100 mg of Solu-Medrol last night. Her symptoms have mostly resolved, and she is feeling much better. However, she continues to have some swelling along her right metacarpophalangeal joint and some swelling in her knees. Of note, she was also recently diagnosed with a slight vitamin B12 deficiency and is on treatment for that and she is also getting vitamin D replacement therapy. PAST MEDICAL HISTORY: Includes: 1. Hypercholesterolemia. 2. Depression. 3. Hypertension. 4. Osteoarthritis of the knees. 5. History of degenerative disk disease and she has required back surgery in the past. 6. History of vertigo in 2003. 7. She had a history of chest discomfort with negative cardiac workup in the past in 2006. 8. History of herpes zoster in 2014 with intermittent postherpetic neuralgia in the T10 dermatome. PAST SURGICAL HISTORY: Includes a , appendectomy, tonsillectomy and adenoidectomy. MEDICATIONS: As an outpatient include: 1. Clobetasol 0.05 mg topical b.i.d. 2. Cetirizine 10 mg daily. 3. B12 2000 mcg daily. 4. Daypro 600 mg as needed for knee pain, which she uses sparingly because she has noted that her creatinine has been borderline elevated over the last year. 5. Doxycycline which she has been finishing up as an outpatient. 6. Effexor. 7. Vitamin D. 8. History of taking Yuvafem 10 mcg vaginal tablets. ALLERGIES: Include MACRODANTIN. SOCIAL HISTORY: She does not own any birds or parrots. She does have a cat who did give her a recent scratch possibly. No other pets. She denied any tobacco or drug use. [place], but does not recall any recent tick bites. 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 She is recently and her daughter is very supportive. REVIEW OF SYSTEMS: Cardiac: Denies chest wall pain. Pulmonary: Denies acute shortness of breath. She does have mild exertion with increased stressful activities while walking a lot. Musculoskeletal: She has swelling of her right MCP joint and some knee swelling and also chronic back discomfort and neck discomfort. Neurologic: As noted above with mild posterior neck pain. Endocrine: No glandular swelling. Psychiatric: No recent depression. Skin: No rash other than that noted above, but her hands change colors with cold. : No blood in the urine or stool. Other 14-point review of systems were reviewed and were otherwise negative. PHYSICAL EXAM: She is a pleasant woman, sitting up, in no acute distress, accompanied by her daughter. Vital Signs: Her temperature is 98, blood pressure 131/76 to 120/63, pulse of 98, afebrile. In general, she is pleasant sitting up in no acute distress. Eyes: No scleral icterus. Pupils are equal round, reactive to light and accommodate. Oral mucosa is moist. No lesions noted. Neck was normal in appearance and movements. Vascular: No JVP elevation. Endocrine: Trachea midline. No thyromegaly. Respiratory: Symmetric chest expansion and respiratory effort. Clear to auscultation. Cardiovascular: Normal breath sounds. No murmurs, rubs, or gallops. Regular rate and rhythm. No JVP distention. Normal S1 and S2. Abdomen: Normal bowel sounds. No organomegaly. No distention. No hepatosplenomegaly. Lymph: No adenopathy. No cervical adenopathy. Extremities: No cyanosis, clubbing or edema. Musculoskeletal: She had mild swelling around the right second and third MCP joint. Skin: She had fading erythema along the inner aspect of the right elbow, but no nodules or sclerosis. Neurologic: Alert and oriented x3. She was able to walk independently, clear speech. Motor function was intact and 5/5 and strength was intact and normal. : No CVA tenderness. DIAGNOSTIC STUDIES/LAB DATA: She had a hemoglobin of 11.7, creatinine of 1.16, acetaminophen less than 15, C-reactive protein of 11.4, total protein of 8.1. 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 ASSESSMENT: She is a 65-year-old woman with recent diagnosis of possibly early Lyme disease, also presenting with ataxia and transient visual symptoms in the setting of a transient headache, which has been responsive to steroids in the setting of elevated inflammatory markers. 1. Given her age as well as elevated inflammatory markers and the above symptoms, I agree with ruling out giant cell arteritis. She was able to get a temporal artery biopsy this afternoon and we will need to follow up on those results. I would also in light of her brain imaging findings check on the heavy metal screen. She already has a lead level pending. I would also in light of her history of renal insufficiency, check an antinuclear antibody and ANCA. She uses NSAIDs very sparingly, but it does appear that she might have mild renal insufficiency, which does not appear to be new. I would also check her inflammatory markers again and in regards to her joint symptoms, she may have an underlying reactive arthritis, but I also agree with ruling out atypical rheumatoid arthritis with a CCP and rheumatoid factor. 2. Vitamin D deficiency. Continue replacement. 3. Vitamin B12 deficiency. This may be related to her ataxia and I agree with replacement therapy. Consider parenteral administration. 4. Depression seems stable presently. 5. Elevated inflammatory markers with followup on the autoimmune serologies as noted above. 6. History of 1 band positive for Lyme disease. I agree with repeating her Lyme Western blot to see if anymore bands have evolved. Again, I also consider reactive arthritis. In terms of her possible mild Raynaud's features, autoimmune serologies are pending TIME SPENT: Time spent was greater than 60 minutes with greater than 50% of the time spent counseling the patient and her daughter. [id number]/[facility] #: [id number] TONO
--- NOTE | 2016-06-19 03:38 | OP ---
DATE OF OPERATION: 06/18/16 - ROOM #446 DATE OF : 52 SURGEON: Levy Armendariz MD. COLOR ARTIST: None. ANESTHESIOLOGIST: None. PRE-OP DIAGNOSIS: Headache, rule out temporal arteritis. POST-OP DIAGNOSIS: Headache, rule out temporal arteritis. OPERATIVE PROCEDURE: Left temporal artery biopsy. DESCRIPTION OF PROCEDURE: The patient was supine on the operative table. The left temporal region is clipped and prepped with antiseptic, draped in a sterile fashion. Local infiltrative anesthesia was administered and approximately a 3-cm to 4-cm incision is created starting in the preauricular space and extending upward and the temporal artery was identified, dissected free and approximately 4-cm segment is clipped and removed and sent in formalin to pathologic evaluation. Closure was accomplished in layers with 4-0 Vicryl followed by Steri-Strips. She tolerated the procedure well, was brought to recovery in good condition. No complications. No drains. Pathologic specimen as above. Sponge and instrument counts correct. Estimated blood loss almost nil. CC: Dr. Kellie Crump; Dr. Levy Moore* [id number]/[facility] #: [id number] [facility]
[2016-06-19 06:05] LABS: Hematocrit 32 % (35-47); Hemoglobin 10.7 g/dl (12.0-16.0); Mean Corpuscular HGB Conc 33 g/dl (31-36); Mean Corpuscular Hemoglobin 30 pg (27-31); Mean Corpuscular Volume 91 fL (80-97); Mean Platelet Volume 8 um3 (7.4-10.4); Red Blood Count 3.54 10^6/ul (4.0-5.4); Red Cell Distribution Width 13 % (10.5-15); White Blood Count 9.8 10^3/ul (3.5-10.8)
--- NOTE | 2016-06-19 06:15 | PN ---
NEUROLOGICAL FOLLOWUP NOTE: DATE OF VISIT/DICTATION: 06/18/16 - ROOM #446 PATIENT: Nila Rausch. HISTORY: This is a neurological followup on this 65-year-old woman. She notes her headache is worse today, that is bifrontal and left temporal head pain. She notes that her walking is better and feels more stable. She received her Solu-Medrol last night without problem. Her other medications are unchanged. Rest of the review of systems is negative in all 14 spheres. PHYSICAL EXAMINATION: Temperature 98.2, pulse 78, respirations 17, blood pressure 116/86. She is alert and oriented with normal speech and comprehension. Cranial nerves II through XII were intact. Motor exam revealed normal tone and strength. Gait appeared normal other than turn. Turns seems little bit wobbly. She remains having some mild left temporal tenderness. Chest: Clear. Cardiovascular: Regular rate and rhythm. Abdomen: Soft. DIAGNOSTIC STUDIES: Her MRA of head and neck was normal. Her rheumatological studies are not back. I spoke this morning to Dr. Timmons to discuss the case. He agreed getting the temporal biopsy and he thought that on preliminary, we may see findings that would go along temporal arteritis and we discussed the pros and cons getting a spinal tab and we are going to wait and see what the temporal artery biopsy shows and may proceed to a spinal tap tomorrow morning if need be. Dr. Timmons would be in later today but the plan is to continue steroids today and I spoke with Dr. Timmons and Dr. Rausch about that. Thank you for sharing her case. [id number]/[facility] #: [id number] TONO
[2016-06-19 06:35] LABS: Albumin 3.6 g/dL (3.2-5.2); BUN/Creatinine Ratio 20.6 (8-20); C Reactive Protein 6.24 mg/L (< 5.00); Calcium 9.2 mg/dL (8.6-10.3); EGFR African American 66.4 (>60); EGFR Non-African American 51.6 (>60); Globulin 3.7 g/dL (2-4); Potassium 4.1 mmol/L (3.5-5.0); Total Bilirubin 0.3 mg/dL (0.2-1.0); Total Protein 7.3 g/dL (6.4-8.9)
[2016-06-19] MEDS: Aspirin Low Dose CHEW TAB* 81 MG PO SCH (07:24)
[2016-06-19] MEDS: Cholecalciferol TAB* 1000 UNITS PO SCH (07:24)
[2016-06-19] MEDS: DOXYcycline CAP(*) 100 MG PO SCH (07:24)
[2016-06-19] MEDS: Venlafaxine EXT RELEASE CAP* 75 MG PO SCH (07:25)
[2016-06-19] MEDS: predniSONE TAB* 20 MG PO SCH (07:25)
[2016-06-19] MEDS: Cyanocobalamin TAB* 500 MCG PO SCH (07:26)
[2016-06-19] MEDS: Clobetasol 0.05% OINT* 30 GM TUBE TOPICAL SCH (07:38)
--- NOTE | 2016-06-19 09:48 | PN ---
<Tabby Brown - Last Filed: 06/19/16 11:45> Infectious Disease Note Date of Evaluation: 06/19/16 SOAP: Consult Requested By: Dr. Shellie Rausch Consult Question: ?Lyme meningitis #HPI: 65 year old lady previously healthy with hx HTN, shingles 2014, inflammatory joint pain over last several years, presented to [facility] ED on 06/17 with chief complaint of dizziness, headache, visual deficits and confusion, sent in by PCP for evaluation. Per patient issues arose towards the end of May, when she first experienced mild odynophagia, malaise, with discomfort/ulcer over right lateral aspect of tongue, went into [facility] and given swabs/lozenges, thought to be canker sore. Over several days after this visit, She subsequently experienced a "blackout" event while at work with blackout of vision and dizziness which lasted few seconds, and also noted large erythematous patch without central clearing over right elbow with accompanying mild pain and given outdoor exposure (noel near house) and pet dog/cat, started on Doxycycline by PCP and ESR noted to be elevated to 100s during this time and 1/5 bands positive on Lyme band testing. Over the following week, she developed mild temporal headaches with decreased visual acuity, subjective chills but no fevers/photophobia/neck stiffness. On Wednesday, noted to be ataxic, mild word finding difficulty, and generalized confusion, so brought into ED by daughter. On admission, labs notable for mild normocytic anemia without leukocytosis, remarkably elevated ESR to 87, CRP to 11.8, mild Cr bump to 1.16, nl LFTs, UTox negative and nl TSH, infectious labs: UA bland, UCx negative, imaging notable for clear CXR, but brain MRI with T2 hyperintensities around BG concerning for metabolic vs toxic insult, negative MRA of head/neck. Given temporal headaches, decreased visual acuity, and elevated inflammatory markers, concern for temporal arteritis raised, given Salumedrol, transitioned to oral prednisone, temporal artery biopsy with results pending and rheumatology on board. Doxycycline continued per outpatient regimen. ID is now consulted for question of Lyme meningitis, as well as the need to perform LP to rule out other infectious meningitis. When examined by ID team, patient mental status returned to baseline, still complains of mild ataxia when she ambulates. No fevers/ chills in-house per patient. She notes her headaches and visual acuity has also improved. Her elbow rash has since subsided and patient does not complain of other joint pains or new rashes. #RoS Denies: fever/chills headaches, vision changes chest pain, dyspnea abdominal pain, n/v/d joint pains/arthralgia dysuria/vaginal bleeding weaknesses, numbness depression #PMH/PSH: HL MDD HTN OA Knees Herpes Zoster 2013 DJD Vitamin B12 deficiency , appendictomy, tonsillectomy #FH: Not contributory #Social History No toxic habits Works @ [employer] Owns dog/cat #Home Medications: Cetirizine* [ZyrTEC 10 MG TAB*] 10 mg PO DAILY 06/17/16 [History Confirmed 06/17] Clobetasol 0.05% OINT* 1 applic TOPICAL BID 06/17/16 [History Confirmed 06/17/16 ] DOXYcycline CAP(*) [DOXYcycline 100MG CAP(*)] 100 mg PO BID 06/17/16 [History Confirmed 06/17/16] Estradiol Vaginal [Yuvafem] 10 mcg VAGINAL .TWICE WEEKLY 06/17/16 [History Confirmed 06/17/16] Halobetasol Propionate [Ultravate] 0.05 % TOPICAL BID 06/17/16 [History Confirmed 06/17/16] Oxaprozin [Daypro] 600 mg PO DAILY PRN 06/17/16 [History Confirmed 06/17/16] Venlafaxine EXT RELEASE CAP* [Effexor Xr CAP*] 75 mg PO QAM 06/17/16 [History Confirmed 06/17/16] Venlafaxine EXT RELEASE CAP* [Effexor Xr CAP*] 150 mg PO QAM 06/17/16 [History Confirmed 06/17/16] #Allergies: Macrodantin #Objective: Vital Signs 06/18/16 06/18/16 06/18/16 11:59 16:00 18:29 Temperature 36.8 C 36.8 C 36.8 C Pulse Rate 80 86 86 Respiratory 17 18 18 Rate Blood Pressure 116/86 131/72 131/72 (mmHg) O2 Sat by Pulse 96 97 97 Oximetry 06/18/16 06/18/16 06/19/16 19:53 23:26 03:39 Temperature 36.9 C 36.8 C 36.6 C Pulse Rate 80 79 77 Respiratory 16 20 20 Rate Blood Pressure 136/79 126/72 116/63 (mmHg) O2 Sat by Pulse 96 96 98 Oximetry 06/19/16 06/19/16 06:50 07:37 Temperature 36.5 C Pulse Rate 63 Respiratory 20 16 Rate Blood Pressure 136/81 (mmHg) O2 Sat by Pulse 98 Oximetry Laboratory Results - last 24 hr 06/19/16 06/19/16 05:21 05:22 WBC 9.8 RBC 3.54 L Hgb 10.7 L Hct 32 L MCV 91 MCH 30 MCHC 33 RDW 13 Plt Count 242 MPV 8 Neut % (Auto) 80.1 Lymph % (Auto) 16.8 L [place] % (Auto) 3.0 Eos % (Auto) 0 Baso % (Auto) 0.1 Absolute Neuts (auto) 7.9 H Absolute Lymphs (auto) 1.7 Absolute Monos (auto) 0.3 Absolute Eos (auto) 0 Absolute Basos (auto) 0 Absolute Nucleated RBC 0 Nucleated RBC % 0 Sodium 138 Potassium 4.1 Chloride 108 Carbon Dioxide 23 Anion Gap 7 BUN 22 Creatinine 1.07 H Est GFR ( Amer) 66.4 Est GFR (Non-Af Amer) 51.6 BUN/Creatinine Ratio 20.6 H Glucose 133 H Calcium 9.2 Total Bilirubin 0.30 AST 16 ALT 16 Alkaline Phosphatase 70 C-Reactive Protein 6.24 H Total Protein 7.3 Albumin 3.6 Globulin 3.7 Albumin/Globulin Ratio 1.0 #Current Medications Acetaminophen (Tylenol Tab*) 650 mg PO Q4H PRN PRN Reason: FEVER/PAIN Last Admin: 06/18/16 12:24 Dose: 650 mg Aspirin (Aspirin Low Dose Tab*) 81 mg PO DAILY [facility] Last Admin: 06/19/16 07:24 Dose: 81 mg Cholecalciferol (Vitamin D Tab*) 4,000 units PO DAILY [facility] Last Admin: 06/19/16 07:24 Dose: 4,000 units Clobetasol Propionate (Clobetasol 0.05% Oint*) 1 applic TOPICAL BID [facility] Last Admin: 06/19/16 07:38 Dose: 1 applic Cyanocobalamin (Vitamin B12 Tab*) 1,000 mcg PO DAILY [facility] Last Admin: 06/19/16 07:26 Dose: 1,000 mcg Doxycycline Hyclate (Vibramycin Cap(*)) 100 mg PO BID [facility] Last Admin: 06/19/16 07:24 Dose: 100 mg Ibuprofen (Motrin Tab*) 800 mg PO Q8H PRN PRN Reason: PAIN Last Admin: 06/18/16 16:35 Dose: 800 mg Prednisone (Deltasone Tab*) 60 mg PO DAILY [facility] Last Admin: 06/19/16 07:25 Dose: 60 mg Temazepam (Restoril Cap*) 15 mg PO BEDTIME PRN PRN Reason: INSOMNIA Venlafaxine HCl (Effexor Xr Cap*) 225 mg PO QAM [facility] Last Admin: 06/19/16 07:25 Dose: 225 mg Microbiology 06/17/16 17:55 Urine Culture - Final Urine No Growth (<1,000 CFU/mL) Pending Orders: 06/18/16 16:38 Lyme Disease Serology Routine 06/19/16 05:22 ANCA Panel For Vasculitis Routine Anti Double Stranded DNA AB Routine Anti SSA/RO Antibody Routine Babesia microti Abs (IgG, IgM) Routine Cat Scratch Fever Panel Routine Cyclic Citrullinated Pept IgG Routine Ehrlichia chaffeensis IgG AB Routine HLA B27 Routine Heavy Metals Scrn Blood Routine Lead Routine Parvovirus B19 Routine #Physical Exam: Elderly woman sitting on bed NAD no cervical LA thyromegaly no carotid bruits PERRLA EoM grossly intact, subjective dizziness with left superior oblique and left inferior oblique nl s1 s2 no r/m/g CTAB anteriorly and posteriorly soft ntnd + BS no organomegaly no LE edema 5/5 strength UE and LE bilaterally, normal reflexes, neg romberg gait assessed, sways to the right but no shuffling, circumduction AAOx3, euthymic #Assessment: 65 year old lady previously healthy with hx HTN, shingles 2014, inflammatory joint pain over last several years, presents after several days of temporal headaches, vision changes, confusion, ataxia in context of being treated for presumed lyme disease after right elbow rash, significantly elevated ESR with mild CRP elevation and T2 hyperintensity of basal ganglia on brain MRI, s/p temporal artery biopsy and currently on prednisone and doxycycline, with much of her neurological manifestations improved/returned to baseline on our assessment today #Altered Mental Status: -Very unlikely to be lyme meningitis, as if she truly had EM rash 2 weeks prior , she is in early stages, and she does not display any meningeal symptoms, also not likely to be bacterial meningitis, and even if positive for other viral meningitis would mean supportive treatment, therefore from our perspective LP does not seem necessary -Continue with Doxycycline PO to complete 14 day course -f/u babesia Abs, ehrlichia, although mild normocytic anemia and normal plts make these dx less likely as well -f/u lead level and heavy metal screen -Unclear if GCA can cause neurocognitive symptoms such as these, but would f/u rheum labs and continue prednisone, per rheumatology Discussed plan with Dr. Tyrell Brown [facility] Resident PGY-2, Infectious Disease Consult <Tyrell PARIS,Hermes Howell - Last Filed: 06/19/16 12:19> Infectious Disease Note SOAP: Interviewed, examined by me and discussed with Dr Brown. I agree with her full note above. In addition; A full ROS was performed and was negative except as noted in the HPI. Recent viral illness, then possible recent EM rash on appropriate therapy and then headache, ataxia and encephalopathy which were present on admission, resolved rapidly. That she was on doxycycline when HYDROELECTRIC MECHANIC symptoms developed and also had rapid improvement in them argues against HYDROELECTRIC MECHANIC Lyme infection. Today she is nearly asymptomatic so do not recommend LP; can continue emperic doxycycline which does have excellent HYDROELECTRIC MECHANIC penetration. Follow up with me next week. Discussed with Dr Rausch
--- NOTE | 2016-06-19 11:26 | PN ---
Progress Note - Progress Note Note: Spoke with pathologist Dr Espinoza who confirmed that pt's temporal artery appears normal. no evidence of inflammation noted
[2016-06-19 12:12] LABS: Rheumatoid Factor <15 IU/mL (<15)
[2016-06-19 12:20] VITALS: BP 154/86
[2016-06-19 20:38] LABS: Phospholipid Ab IgG < 9.4 GPL; Phospholipid Ab IgM, S < 9.4 MPL
--- NOTE | 2016-06-20 01:33 | DS ---
DISCHARGE SUMMARY: DATE OF ADMISSION: 06/17/16 DATE OF DISCHARGE: 06/19/16 DISCHARGE DIAGNOSES: Transient episode of difficulty word finding. Subsequent unsteady gait that is greatly improved at discharge. The patient also had mild nystagmus and blurry vision. At this point, the workup is ongoing and the differential includes rheumatologic condition versus postviral syndrome versus neurologic Lyme. SECONDARY DIAGNOSES: 1. History of vitamin D and vitamin B12 deficiency. 2. Hypercholesterolemia. 3. Depression. 4. Hypertension. 5. History of osteoarthritis. 6. Degenerative disk disease. 7. Chest pain in 2006 with negative cardiac workup and false positive stress test at that point. 8. History of herpes zoster in 2014 with intermittent postherpetic neuralgia in the right T10 dermatome. 9. History of . 10. Appendectomy. 11. Tonsillectomy and adenoidectomy. MEDICATIONS AT DISCHARGE: Include: 1. Vitamin D3, 5000 units daily 2. Effexor ER 150 mg in the morning and 75 mg in the afternoon. 3. Yuvafem 10 mcg vaginal tablets, continue using as previously prescribed. 4. Doxycycline 100 mg b.i.d., continue using for a total of 21 days as previously prescribed. 5. Daypro 600 mg 1 tablet daily p.r.n. knee pain. 6. Vitamin B12, 2000 mcg daily. 7. Clobetasol 0.05% topical b.i.d. p.r.n. 8. Cetirizine 10 mg daily. The above mentioned are unchanged from admission. In addition to that, the patient also is recommended to be continued on prednisone taper. The prednisone taper is as follows. The patient is to use 40 mg daily for 2 days, 30 mg daily for 2 days, 20 mg daily for 2 days, then 10 mg daily for 2 days, then stop. FOLLOWUP: The patient is recommended to follow up with Dr. Timmons in approximately 1 week. The patient is also recommended to follow up with Dr. Moore in 1 week. The patient is recommended to follow up with Dr. Snatillan as needed in approximately 2 weeks. The patient already has an appointment with Dr. Kellie Crump in a week and a half which she is recommended to keep. DIAGNOSTIC STUDIES/LAB DATA: Studies performed during the hospital stay included: On 06/19/16, white blood cell count of 9.8, hemoglobin of 10.7, hematocrit of 32, platelets of 242. Sodium was 138, potassium 4.1, chloride 108 , carbon dioxide 23, BUN 22, creatinine 1.07. Liver functions were unremarkable. C-reactive protein 6.24. At admission, C- reactive protein was 11.8. Urinalysis showed trace esterase, positive squamous epithelial cells and positive hyaline casts. The patient's ESR was 87 at admission. Neck MRA obtained on 06/18/16, impression: "no internal carotid artery stenosis." Head MRA obtained on the same day, impression: "no aneurysm, vascular malformation, occlusion or stenosis of the visualized intracranial circulation. " Brain MRI obtained on 06/17/16, impression: "negative for acute or subacute ischemia or evidence for demyelinating disease. Stigmata of punctate hemosiderin deposition in the right frontal lobe, most consistent, related to a tiny cavernous angioma. Noted mild bilateral symmetric T2 hyperintense stable without enhancement or mass effect at the basal ganglia, specifically involving the globus pallidus. While nonspecific, may reflect previous toxin exposure such as carbon monoxide or potentially a neurodegenerative or metabolic disease. " Brain CT obtained at admission, impression: "no active intracranial pathology. " Chest x-ray obtained on admission, impression: "no active cardiopulmonary disease." CONSULTATION DURING THE HOSPITAL STAY: Included: 1. Dr. Moore from Neurology. 2. Dr. Timmons from Rheumatology. 3. Dr. Santillan from Infectious Diseases. 4. Dr. Armendariz from Surgery. PROCEDURES PERFORMED DURING THE HOSPITAL STAY: Included: Left temporal artery biopsy performed by Dr. Armendariz on 06/18/16. Pathology reported on 06/19/16 showed "benign arterial tissue with no significant pathological abnormalities." Laboratory tests that are still pending at the time of dictation include: Anti - double stranded DNA, CECI, ANCA, Babesia ,cat scratch fever panel, CCP level, cardiolipin IgG and IgM, Ehrlichia IgG antibody, antigen HLA-B27, heavy metal screen, lead level, Lyme disease serology , parvovirus B19 serology, rheumatoid factor, anti-SSA and RO antibody. HOSPITALIZATION COURSE: Elisa Hough is a 65-year-old female who presented with above-mentioned unsteady gait and an acute onset of problems with difficulty finding words, blurry vision and arthralgias. For further details of the patient's admission, please see history and physical dictated by myself on 06/17/16. In short, the patient stated that arthralgias have been ongoing for approximately 3 to 4 weeks. She has had upper respiratory infection symptoms at the beginnings of this. She also had an ulceration on the base of her tongue that resolved. On 06/08/16, she was noted to have a target lesion on her right elbow and prescribed doxycycline by Dr. Crump. At this point, her Lyme serology showed 1 band, which was not positive at that point but it was possible that the patient had an early infection. At admission, the patient had been on doxycycline for approximately 8 or 9 days and she was doing fine. She presented to the hospital after an acute onset of feeling unwell, blurry vision and difficulty finding words. Problems with difficulty finding words and blurry vision resolved by the time she presented to the emergency department, but she continued to have ataxic gait and nystagmus on left lateral gaze. She was placed on observation on telemetry monitored bed. Dr. Moore saw patient in Neurology, recommended MRI and MRA of the brain as well as head and neck. Also, further inflammatory markers were noted to be elevated ESR at 87. The patient also had slightly elevated creatinine, which appeared to be her baseline. She also had swelling at her first MCP joint. The patient was also seen by Dr. Timmons in consultation who recommended workup as mentioned above. Most of the studies are still pending at the time of dictation. After patient's MRA report, Dr. Moore decided to treat patient with steroids. A dose of 125 mg was administered on 06/17/16. In the morning of 06/18/16, the patient's gait greatly improved and most of her symptoms started resolving. Her repeat C-reactive protein was down to [address] Moore also noted that the patient had left temporal artery tenderness and Dr. Armendariz was asked to perform a biopsy. The biopsy report on 06/11/16 noted that there were no abnormalities on the temporal artery biopsy. Nevertheless, for the past of the couple of days, the patient's gait improved greatly after the use of steroids. The patient also felt less myalgias. Due to the possibility of neuro Lyme, Dr. Santillan was consulted from Infectious Diseases. At this point though, he did not recommend further tests and no lumbar puncture was recommended. It was recommended for the patient to continue her course of doxycycline. Repeat Lyme serologies are pending at the time of dictation. At this point, it is very difficult to pinpoint if patient has an ongoing rheumatologic condition or consequence of neuro Lyme or maybe postviral syndrome. I discussed the case briefly with Dr. Timmons and at this point the patient is recommended to be on a short taper of oral steroids at home. Dr. Timmons and Dr. Moore will see the patient next week for followup. The patient is also recommended to follow up with Dr. Crump as well as Dr. Santillan as needed. PHYSICAL EXAMINATION: At the time of discharge, Vital Signs: Blood pressure 154/86, heart rate of 75 and regular, respiratory rate 16, oxygen saturation 96 % on room air, temperature 98.2. General: The patient is a very pleasant 65- year-old female who is in no acute distress, awake and oriented x3. HEENT: Head atraumatic, normocephalic. Eyes: Pupils equal, round, reactive to light and accommodation. Pharynx clear. Mucosa moist. Neck: Supple. No JVD, no bruits bilaterally. Cardiovascular: Regular rate and rhythm. No murmur. Respiratory: Clear to auscultation bilaterally. Abdomen: Soft, nontender. Bowel sounds present in all 4 quadrants. Extremities: There is no bilateral ankle edema. Pulses are +2 bilaterally. No clubbing or cyanosis. Please note that the patient has mild swelling in the area of her second and third MCP joint that had improved during the hospital stay. Neurologic: The patient continues to have nystagmus on left lateral gaze. Her vision is no longer blurry. She denies double vision. Her gait is steady, but still minimally ataxic. It is not wide. Motor strength is 5/5 bilaterally. Speech is clear. Cranial nerves II through XII grossly intact. [id number] is not dysmetric. [id number]-coea is not dysmetric bilaterally. Sensation is grossly intact. Skin: On evaluation of the skin, the patient's area where she had a targeted lesion on her right elbow has skin that is dry and slightly peeling, but rash is no longer evident. Psychiatric: The patient is pleasant, cooperative with evaluation with no evidence of anxiety or depression. Please note this is a short summary of patient's long and complicated hospitalization. Please refer to further medical records for details. TIME SPENT: Approximately 45 minutes was spent on the patient's discharge. CC: Dr. Kellie Crump; Dr. Santillan; Dr. Moore; Dr. Timmons; Dr. Armendariz * [id number]/[facility] #: [id number] MTDD
[2016-06-20 14:36] LABS: Anti SSA/RO Antibody <0.2 U
[2016-06-20 14:50] LABS: Venous/Capillary Venous
[2016-06-20 15:52] LABS: Arsenic <1 ng/mL (0-12); Cadmium 0.4 ng/mL (0.0-4.9); Mercury <1 ng/mL (0-9); Venous/Capillary Heavy Metals Venous
[2016-06-20 18:30] LABS: Cyclic Citrullinated Pept IgG <15.6 U
[2016-06-22 07:01] LABS: Bartonella Henselae IgG <1:128 titer (<1:128); Bartonella Henselae IgM <1:20 titer (<1:20); Bartonella Quintana IgM <1:20 titer (<1:20)
[2016-06-22 16:41] LABS: Lyme Disease IgG Ab WB Negative (Negative)
[2016-06-22 20:24] LABS: Parvovirus (B19) IgG Antibody 6.89 index (<0.90); Parvovirus (B19) IgM Antibody 0.24 index (<0.90)
[2016-06-23 17:56] LABS: Babesia microti IgG <1:64; Babesia microti IgM <1:20
== END 2016-06-19 13:30 | disposition home or self-care (01) ==
LOC: ED 14:17 → MEDTELE 15:37
PROVIDERS: ADMIT Internal Medicine; ATTEND Internal Medicine
PROC: 03BT0ZX Excision of Left Temporal Artery, Open Approach, Diagnostic (ICD-10-PCS; principal; 2016-06-17)
DX: R47.01 Aphasia (principal); H53.8 Other visual disturbances; R27.0 Ataxia, unspecified; R42 Dizziness and giddiness; R51 Headache; E53.8 Deficiency of other specified B group vitamins; E55.9 Vitamin D deficiency, unspecified; I10 Essential (primary) hypertension; F32.9 Major depressive disorder, single episode, unspecified; R07.9 Chest pain, unspecified; M19.90 Unspecified osteoarthritis, unspecified site; Z79.899 Other long term (current) drug therapy; E78.00 Pure hypercholesterolemia, unspecified; Z88.8 Allergy status to other drugs, medicaments and biological substances; A69.20 Lyme disease, unspecified
CPT/HCPCS: 36415; 70450; 70544; 70547; 70553; 71010; 80053; 80320; 80329; 81003; 81015; 82140; 82175; 82300; 82550; 82553; 83516; 83605; 83655; 83690; 83735; 83825; 84443; 84484; 85025; 85610; 85652; 85730; 86038; 86140; 86147; 86200; 86225; 86235; 86431; 86611; 86617; 86618; 86666; 86747; 86753; 86812; 87086; 88305; 93005; 96361; 96372; 96374; 99283; A9270-GY; A9579; G0378; G0480; J1644; J2001; J2930; J7512

== ENCOUNTER 2016-12-21 10:13 | Day surgery (SDC) | payer MEDICARE, OTHER ==
[~2016-12-21 10:13] MED LIST: Buffered Lidocaine 0.9% SYRIN* 5 ML/SYR SYRINGE INTRADERM ONE; Famotidine IV* 10 MG/ML 2 ML (20 mg) IV ONE
[2016-12-21] MEDS ORDERED: Midazolam* 1 MG/ML 5 ML VIAL (5 MG) ONE (11:15)
[2016-12-21] MEDS ORDERED: DiMENhydriNATE IV* 50 MG/ML VIAL IV PUSH PRN (11:48)
[2016-12-21] MEDS ORDERED: PROCHLORPERAZINE INJ 5 MG/ML 2 ML VIAL IV PRN (11:48)
[2016-12-21] MEDS ORDERED: Ondansetron INJ* 2 MG/ML VIAL IV PRN (11:48)
[2016-12-21 12:23] LABS: Body Fluid Appearance Clear; CSF Glucose 68 mg/dL (40-70)
[2016-12-21 12:25] LABS: BF RBC Count #1 0; BF WBC Count #1 1
[2016-12-21 12:26] LABS: BF RBC Count #2 1; BF WBC Count #2 1; Body Fluid WBC 1 /mcL; RBC counts within 6%? Yes; WBC counts within 15%? Yes
[2016-12-21 12:40] LABS: Body Fluid Total Cells Counted 5
[2016-12-21 14:08] VITALS: BP 118/62
[2016-12-22 16:30] LABS: CSF Oligoclonal Bands 7 bands; Oligoclonal Proteins Interpret 7 bands (<4); Serum Oligoclonal Bands 0 bands
== END 2016-12-21 14:00 | disposition home or self-care (01) ==
LOC: OR 10:13
PROVIDERS: ATTEND Emergency Medicine
DX: G04.90 Encephalitis and encephalomyelitis, unspecified (principal); Z88.1 Allergy status to other antibiotic agents; F32.9 Major depressive disorder, single episode, unspecified
CPT/HCPCS: 36415; 62270; 82945; 83916; 84157; 86592; 86618; 87070; 87205; 88112; 89051; J2250